=== PATIENT | female | born 1960 | race Caucasian/White ===

== ENCOUNTER 2021-11-15 08:29 | Outpatient (RCR) | payer MEDICAID, SELFPAY ==
--- NOTE | 2021-11-15 | CRLHL7_ITS ---
For Patients: As a result of the Century Cures Act, medical imaging exams and procedure reports are released immediately into your electronic medical record. You may view this report before your referring provider. If you have questions, please contact your health care provider. [facility] ??? [facility] MYOCARDIAL PERFUSION SCAN, 11/29/2021 CLINICAL HISTORY: 61-year-old female. Shortness of breath. Current smoker. Hypertension. Asthma. 273 pounds. TECHNIQUE: This is a rest only examination performed on 11/15/2021. The patient reportedly canceled the stress portion of the examination on multiple occasions. 41.1 mCi of [id number] was injected intravenously. Ungated resting only images were obtained. FINDINGS: There is good uptake of activity by the left ventricle. No left ventricular enlargement is noted. Mildly decreased activity in the anterior wall probably represents breast attenuation artifact. No other significant resting perfusion abnormalities are identified. IMPRESSION: 1) No significant resting perfusion abnormalities are identified. 2) Please note that this is a resting only study and does not evaluate for ischemia. 3) If clinically indicated, this study could be repeated at a future date with stress and rest imaging. JACLYN DC M.D. Diagnostic/Nuclear Medicine Radiologist [email or web address] Transcribed: 11:[address]/Dictated by: Jaclyn Dc MD @ 11/29/2021 9:23:00 AM (Electronically Signed)
== END 2022-02-22 23:59 | disposition home or self-care (01) ==
LOC: STRESS 08:29
PROVIDERS: PCP Family Medicine; Visit Provider Family Medicine
DX: R07.9 Chest pain, unspecified (principal); R06.09 Other forms of dyspnea
CPT/HCPCS: 78452; A9500